=== PATIENT | male | born 1965 | race African-American/Black ===

== ENCOUNTER 2019-08-13 17:31 | Inpatient (IN) | payer OTHER ==
[~2019-08-13] VITALS: Ht 175.3 cm; Wt 87.5 kg
--- NOTE | ~2019-08-13 | EMS ---
[address] [address] EMS Patient Care Report Name: LARISA AGUIRRE Room #: PRE ER M.R.#: [id number] Admission: Attend Phys: Discharge: Date of : 61 Report #: [id number] THIS REPORT FOR: //name// Report Transmitted: 08/13/2019 16:53 EMS Care Summary [place], [place]/[facility] Incident [id number] @ 08/13/2019 16:37 Incident Location [address] [place], [place] [id number] Patient LARISA AGUIRRE Male, 54 Years 1965 Patient Address Patient History Congestive Heart Failure (CHF),Chronic Obstructive Pulmonary Disease (COPD), Patient Allergies No known allergies, Patient Medications Oxygen, Plavix, Chief Complaint shortness of breath Disposition Transported No Lights/[place] Dispatch Reason Breathing Problem Transported To [facility] Narrative ems met p42 on scene. pt found sitting upright in chair and alert. pt a&ox4 gcs 15 and presented with mild shortness of breath. pt was conversational with crew on scene. pt complained of vomiting and soa x2 hrs. pt stated he is on 8lpm o2 via nc at all times as he is now. pt agreed to be transported to [facility]. pt stated he would attempt to walk to cot in hallway. pt made it approx half way and stated he was becoming exerted. ems stated they will carry pt. 8lpm [address] [address] EMS Patient Care Report Name: LARISA AGUIRRE Room #: [facility] M.R.#: [id number] Admission: Attend Phys: Discharge: Date of : 61 Report #: [id number] continued. pt was [place] carried to ems cot. pt was transferred onto ems cot and was secured in a semi fowlers position without incident. pt was loaded into ambulance. upon auscultation only diminished sounds were noted. pt was administered a duoneb at 8lpm o2. a 12-lead ekg was obtained but was not printed due to a monitor error. per screen, ekg was nsr and appeared unremarkable. an 18ga sl iv in pts L ac was obtained. pt was transported non emergent. transport was uneventful and pt rested on ems cot. pt stated his breathing was better. after completing duoneb pt stated his breathing began to worsen. upon arrival of [facility] pt was administered 15lpm o2 via nrb. pt care was transferred to appropriate staff and ems goes back in service. Initial Vitals @16:53P: 104,SpO2: 70, @17:01P: 90,CO: 4,SpO2: 95,KS Suspected: false @16:55P: 88,R: 20,BP: 170/106,Pain: 0/10,GCS: 15,Glucose: 111,SpO2: 96,Revised Trauma: 12, @17:07P: 80,R: 20,GCS: 15,SpO2: 82, @17:17P: 88,R: 20,BP: 164/100,GCS: 15,SpO2: 95,Revised Trauma: 12, Assessments @16:46MENTAL:Person Oriented,Time Oriented,Event Oriented,Place Oriented,SKIN:No Abnormalities,HEENT:Head/Face: No Abnormalities,Eyes: No Abnormalities,Neck/Airway: No Abnormalities,LUNG SOUNDS:General: No Abnormalities,Left Upper: No Abnormalities,Right Upper: No Abnormalities,Left Lower: No Abnormalities,Right Lower: No Abnormalities,ABDOMEN:General: No Abnormalities,Left Upper: No Abnormalities,Right Upper: No Abnormalities,Left Lower: No Abnormalities,Right Lower: No Abnormalities,PELVIS//GI:No Abnormalities,EXTREMITIES:Left Arm: No Abnormalities,Right Arm: No Abnormalities,Left Leg: No Abnormalities,Right Leg: No Abnormalities,PULSE:NEURO:No Abnormalities,@17:17MENTAL:No Abnormalities,SKIN:No Abnormalities,HEENT:Head/Face: No Abnormalities,Eyes: No Abnormalities,Neck/Airway: No Abnormalities,LUNG SOUNDS:General: No Abnormalities,Left Upper: No Abnormalities,Right Upper: No Abnormalities,Left Lower: No Abnormalities,Right Lower: No Abnormalities,ABDOMEN:General: No Abnormalities,Left Upper: No Abnormalities,Right Upper: No Abnormalities,Left Lower: No Abnormalities,Right Lower: No Abnormalities,PELVIS//GI:No Abnormalities,EXTREMITIES:Left Arm: No Abnormalities,Right Arm: No Abnormalities,Left Leg: No Abnormalities,Right Leg: No Abnormalities,PULSE:NEURO:No Abnormalities, Impression Shortness of breath Procedures @16:46ALS AssessmentResponse: UnchangedSucceeded@16:47Oxygen FlowRate: 8 Device: Nasal Cannula (NC) Response: UnchangedSucceeded@16:52Oxygen FlowRate: [address] [address] EMS Patient Care Report Name: CARLALARISA Room #: PRE ER M.R.#: [id number] Admission: Attend Phys: Discharge: Date of : 61 Report #: [id number] Device: Nebulizer Response: ImprovedSucceeded@16:52Albuterol - 2.5 Milligrams (mg) - NebulizedResponse: Improved@16:55Saline Lock 10cc (18 ga) Site: Antecubital-LeftResponse: UnchangedSucceeded@16:52Atrovent - 0.5 Milligrams (mg) - NebulizedResponse: Improved@17:0112-Lead ECGResponse: UnchangedSucceeded Timeline 16:35,Call Received 16:35,Dispatch Notified 16:37,Dispatched 16:37,En Route 16:45,On Scene 16:46,At Patient 16:46,ALS Assessment,Response: UnchangedSucceeded, 16:47,Oxygen FlowRate: 8 Device: Nasal Cannula (NC) Response: UnchangedSucceeded, 16:52,Oxygen FlowRate: 8 Device: Nebulizer Response: ImprovedSucceeded, 16:52,Albuterol - 2.5 Milligrams (mg) - Nebulized,Response: Improved 16:52,Atrovent - 0.5 Milligrams (mg) - Nebulized,Response: Improved 16:53,BP: / M,PULSE: 104,RR: R,SPO2: 70 Ox,ETCO2: ,BG: ,PAIN: ,GCS: , 16:55,Saline Lock 10cc 18 ga Site: Antecubital-Left,Response: UnchangedSucceeded, 16:55,BP: 170/106 M,PULSE: 88,RR: 20 R,SPO2: 96 Ox,ETCO2: ,B,PAIN: 0,GCS: 15, 17:01,12-Lead ECG,Response: UnchangedSucceeded, 17:01,BP: / M,PULSE: 90,RR: R,SPO2: 95 Ox,ETCO2: ,BG: ,PAIN: ,GCS: , 17:05,Depart Scene 17:07,BP: / M,PULSE: 80,RR: 20 R,SPO2: 82 Ox,ETCO2: ,BG: ,PAIN: ,GCS: 15, 17:17,BP: 164/100 M,PULSE: 88,RR: 20 R,SPO2: 95 Ox,ETCO2: ,BG: ,PAIN: ,GCS: 15, 17:19,At Destination 17:44,Call Closed Disclaimer v1.1 Copyright 2019 [employer] This EMS Care Summary contains data elements from the applicable legal record (which may be displayed differently). It is designed to provide pertinent information for the following purposes: continuity of care, clinical quality, and state data reporting. The complete legal record is available to ED staff and administrators of the receiving hospital in [employer] Patient Tracker. All data is provided "as is."
--- NOTE | ~2019-08-13 | HC ---
[facility] [place] [address] CONSULTATION Name: LARISA AGUIRRE Room #: 242-P ADM IN M.R.#: [id number] Admission: 08/13/19 Attend Phys: Ambar Hills MD Discharge: Date of : 61 Report #: [id number] THIS REPORT FOR: //name// CC: [facility] physician/PCP Ambar Hills DATE OF SERVICE: 08/15/2019 REASON FOR CONSULTATION: Elevated creatinine and pulmonary edema. REASON FOR PRESENTATION: Shortness of breath. HISTORY OF PRESENT ILLNESS: This is a 54-year-old with past medical history of COPD, hypertension, chronic kidney disease. He is known to have severe pulmonary hypertension per the recent echo. He presented to the hospital with shortness of breath ever since being discharged from [facility]. The patient tells me that he was at [facility] for the same problem and they discharged him on home oxygen, 8 liters. He started to have some shortness of breath and called EMS. O2 sat on arrival of the EMS was in the 70s. The patient was brought for further evaluation. He denies any cough or hemoptysis. Most of the patient's care is at [facility]. He does not really know the details of his medical conditions, but he tells me that he has history of chronic kidney disease and is followed up by [facility]. He also tells me that he had some issues with clots in the liver in the past. Details of this is not available for me. The patient's chest x-ray on presentation was consistent with pulmonary edema. His creatinine was elevated at 3.2 mandating a Nephrology consultation. The patient was moved to the ICU because of his significant oxygen demand. He was initiated on Lasix drip and had about 3 liters of urine output ever since. He does not recall the cause of his kidney problems. He does not take any nonsteroidal anti-inflammatory medications. He is not aware of any personal or family history of cystic kidney disease, nephrolithiasis, connective tissue disorders, and glomerulonephritis. Listed among his medications as an outpatient is Lasix. PAST MEDICAL HISTORY: 1. Chronic kidney disease. 2. Hypertension. 3. Chronic obstructive pulmonary disease. 4. Oxygen dependency. 5. Cerebrovascular accident with residual left-sided weakness. 6. Clots in the liver per the patient. Details of those are not available for me. MEDICATIONS: 1. Xarelto. 2. Lasix. [address] [address] CONSULTATION Name: LARISA AGUIRRE Room #: 242-P [facility] IN M.R.#: [id number] Admission: 08/13/19 Attend Phys: Ambar Hills MD Discharge: Date of : 61 Report #: [id number] 3. Plavix. 4. Carvedilol. 5. Atorvastatin. 6. Amlodipine. REVIEW OF SYSTEMS: GENERAL: No fever or chills. CARDIOVASCULAR: Significant for shortness of breath and dyspnea on exertion. PULMONARY: Significant for shortness of breath, dyspnea on exertion, orthopnea, PND. GASTROINTESTINAL: No nausea or vomiting. GENITOURINARY: No frequency, no urgency. SKIN: No rash or ulcerations. FAMILY HISTORY: His father had heart disease. ALLERGIES: None. PHYSICAL EXAMINATION: VITAL SIGNS: Blood pressure is 148/109. He is afebrile with a temperature of 37. HEAD AND NECK: He is maintained on oxygen. CHEST: Bilateral crackles. CARDIOVASCULAR: No rub. ABDOMEN: Soft, nontender. EXTREMITIES: Lower extremities, no edema. LABORATORY VALUES: Reviewed. He is anemic with a hemoglobin of 9.2; pH of 7.4, pCO2 of 31. Chemistry from this morning, sodium 138, potassium 3.8, BUN 41, creatinine of 3.0. Chest x-ray consistent with pulmonary edema. Renal ultrasound consistent with chronic kidney disease. IMPRESSION AND PLAN: 1. Acute respiratory failure. 2. Chronic kidney disease. 3. Pulmonary edema. 4. Severe pulmonary hypertension. 5. Need to obtain the patient's medical record from [facility] to try to figure out his baseline chronic kidney disease issues and his baseline creatinine. 6. He had very significant response to IV diuresis with improvement of his chest x-ray and oxygen demand. Continue with the Lasix drip one more day. 7. Switch to intermittent dose of Lasix tomorrow, [place] [address] CONSULTATION Name: LARISA AGUIRRE Room #: 242-P [facility] IN M.R.#: [id number] Admission: 08/13/19 Attend Phys: Ambar Hills MD Discharge: Date of : 61 Report #: [id number] diuretics. 8. Blood pressure control. 9. Chronic obstructive pulmonary disease per the pulmonary team. 10. Salt restriction. 11. We will continue to follow. By: [id number] He Meeks MD /nt
[2019-08-13 17:31] VITALS: BP 125/75
[2019-08-13 17:47] LABS: BASOPHILS 0.7 % (0.0-2.0); EOSINOPHILS 0.8 % (0.0-3.0); HEMATOCRIT 32.1 % (42.0-52.0); HEMOGLOBIN 10.2 gm/dL (14.0-18.0); LYMPHOCYTES 7.3 % (24.0-44.0); MCH 22.1 pg (26.0-34.0); MCHC 31.7 g/dL (28.0-37.0); MCV 69.9 fL (80.0-100.0); MONOCYTES 10.5 % (1.0-8.0); PLATELET COUNT 449 thou/uL (150-400); POLYS 80.7 % (36.0-66.0); RBC 4.59 mil/uL (4.50-6.00); RDW 18.1 % (10.5-14.5); WBC 12.4 thou/uL (4.0-11.0)
[2019-08-13 17:58] LABS: ANION GAP 12 mmol/L (7-16); BUN 32 mg/dL (7-18); CALCIUM 8.8 mg/dL (8.5-10.1); CHLORIDE 104 mmol/L (98-107); CO2 24 mmol/L (21-32); CREATININE 2.9 mg/dL (0.7-1.3); GLUCOSE 113 mg/dL (74-106); POTASSIUM 3.3 mmol/L (3.5-5.1); SODIUM 140 mmol/L (136-145)
[2019-08-13 18:04] LABS: BE(vivo) -3.8 mmol/L (-2 to +3); HCO3 19.8 mmol/L (22.0-26.0); pH 7.423 (7.360-7.450); sO2 80.1 % (92.0-98.0)
[2019-08-13 18:09] LABS: ALBUMIN 3.3 g/dL (3.4-5.0); SGOT 11 U/L (15-37); SGPT 11 U/L (30-65); TOTAL BILIRUBIN 0.6 mg/dL (<0.1-1.0); TROPONIN-I <0.06 ng/mL (<0.06)
[2019-08-13 18:10] LABS: PO2 42.5 mmHg (80.0-100.0)
[2019-08-13 18:18] LABS: ANISOCYTOSIS 1+; POLYCHROMASIA OCCASIONAL
[2019-08-13 18:19] LABS: HYPOCHROMASIA SLIGHT; MICROCYTES 1+
[2019-08-13 20:03] LABS: BE(vivo) -4.1 mmol/L (-2 to +3); HCO3 19.6 mmol/L (22.0-26.0); PCO2 31.1 mmHg (35.0-45.0); PO2 101.2 mmHg (80.0-100.0); pH 7.417 (7.360-7.450); sO2 97.8 % (92.0-98.0)
[2019-08-13 20:15] VITALS: BP 112/76
[2019-08-13 20:48] VITALS: BP 112/76
[2019-08-13] MEDS ORDERED: XARELTO15 MG PO (22:33)
[2019-08-13] MEDS ORDERED: HYDRALAZINE 5050 MG PO (22:34)
[2019-08-13] MEDS ORDERED: LASIX 40 MG TAB40 M2 PO (22:34)
[2019-08-13] MEDS ORDERED: PLAVIX 75 MG TA75 M1 PO (22:36)
[2019-08-13] MEDS ORDERED: COREG6.25 MG PO (22:36)
[2019-08-13] MEDS ORDERED: DULERA 100 MCG/13 GM INH (22:36)
[2019-08-13] MEDS ORDERED: LIPITOR40 MG PO (22:37)
[2019-08-13] MEDS ORDERED: NORVASC10 MG PO (22:37)
[2019-08-13] MEDS ORDERED: VENTOLIN HFA 1818 GM INH (22:39)
[2019-08-13] MEDS ORDERED: SPIRIVA18 MCG INH (22:40)
[2019-08-13 23:47] VITALS: BP 99/68
[2019-08-14] VITALS (14 sets, daily range): BP systolic 111–159; BP diastolic 65–101
--- NOTE | 2019-08-14 05:11 | NUR ---
PT WAS AN ER ADMIT. PT IS STABLE UPON ARRIVAL TO THE FLOOR. PT IS ON A NON-REBREATHER MASK. PT IS ALERT AND ORIENTED. NO SIGN OF DISTRESS NOTED. NO FAMILY AT BEDSIDE. ADMISSION ASSESSMENT COMPLETED AND CHARTED. SCHEDULED MEDS ADMINISTERED TO PT. NO SIGN OF DISTRESS NOTED IN PT. PT IS STABLE. FALL PRECAUTION IN PLACE. CONTINUE TO MONITOR PATIENT.
[2019-08-14 07:42] LABS: CALCIUM 8.7 mg/dL (8.5-10.1); CREATININE 3.2 mg/dL (0.7-1.3); MAGNESIUM 2.2 mg/dL (1.8-2.4)
--- NOTE | 2019-08-14 08:03 | EKG ---
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 : 1965 Requested By: Wayne Gordon Order Number: [id number] MD: Robin Reyes Measurements Intervals [place] Rate: 86 P: -21 NV: 143 QRS: -3 QRSD: 99 T: 65 QT: 505 QTc: 604 Interpretive Statements Sinus rhythm Consider left atrial enlargement Abnormal R-wave progression, early transition Nonspecific repol abnormality, lateral leads No previous ECG available for comparison Electronically Signed On 08-14-2019 8:03:23 CDT by Robin Reyes [email or web address] <ELECTRONICALLY SIGNED> By: Robin Reyes MD 08/14/19 08 36 36 Robin Reyes MD /[place]
--- NOTE | 2019-08-14 10:24 | 2DMMODE ---
[facility] [address] [place] [address] 2 D/M-MODE ECHOCARDIOGRAM Name: LARISA AGUIRRE Room #: 213-P ADM IN M.R.#: [id number] Admission: 08/13/19 Attend Phys: Ambar Hills MD Discharge: Date of : 61 Report #: [id number] THIS REPORT FOR: //name// APPROVED REPORT Study performed: 08/14/2019 09:07:16 EXAM: Comprehensive 2D, Doppler, and color-flow Echocardiogram Patient Location: Bedside Room #: 213 Status: routine BSA: 2.07 HR: 86 bpm BP: 127/87 mmHg Rhythm: NSR Other Information Study Quality: Adequate Technically limited study due to constant coughing. Indications Short of breath. Pulmonary edema. Hx: CHF, COPD, HTN. 2D Dimensions RVDd: 52.09 mm IVSd: 12.00 (7-11mm) LVOT Diam: 22.12 (18-24mm) LVDd: 48.00 mm PWd: 11.00 (7-11mm) Ascending Ao: 38.86 (22-36mm) LVDs: 26.52 (25-40mm) Aortic Root: 40.11 mm Volumes Left Atrial Volume (Systole) Single Plane 4CH: 50.43 mL Single Plane 2CH: 55.27 mL LA ESV Index: 28.00 mL/m2 Aortic Valve AoV Peak Andrea.: 2.39 m/s AO Peak Gr.: 22.94 mmHg LVOT Max P.92 mmHg AO Mean Gr.: 11.83 mmHg AO V2 Mean: 1.64 m/s LVOT Max V: 1.32 m/s AO V2 VTI: 39.08 cm CHARLIE Vmax: 2.11 cm2 [facility] [address] [place] [address] 2 D/M-MODE ECHOCARDIOGRAM Name: LARISA AGUIRRE Room #: 213-P ADM IN M.R.#: [id number] Admission: 08/13/19 Attend Phys: Ambar Hills MD Discharge: Date of : 61 Report #: [id number] Mitral Valve E/A Ratio: 0.7 MV Decel. Time: 337.18 ms MV E Max Andrea.: 0.79 m/s MV A Andrea.: 1.14 m/s MV PHT: 97.78 ms IVRT: 72.66 ms Pulmonary Valve PV Peak Andrea.: 1.05 m/s PV Peak Gr.: 4.39 mmHg Tricuspid Valve TR Peak Andrea.: 4.29 m/s RAP Estimate: 5.00 mmHg TR Peak Gr.: 74.00 mmHg PA Pressure: 79.00 mmHg Left Ventricle The left ventricle is normal size. There is normal LV segmental wall motion. Flattened septum consistent with right ventricular pressure overload. Mild concentric left ventricular hypertrophy. Left ventricular systolic function is hyperdynamic. LVEF is >70%. Mild diastolic dysfunction is present (impaired relaxation pattern). Right Ventricle Right ventricle is dilated. The right ventricular systolic function appears normal. Atria The left atrium size is normal. Right atrium is dilated. Aortic Valve Aortic valve is moderately calcified but has adequate excursion. No aortic regurgitation is present. Mitral Valve The mitral valve is normal in structure. There is no mitral valve regurgitation noted. No evidence of mitral valve stenosis. Tricuspid Valve The tricuspid valve is normal in structure. Mild tricuspid regurgitation. Severe pulmonary hypertension with an estimated PAP of 80mmHg. Pulmonic Valve The pulmonary valve is normal in structure. Trace pulmonic [facility] [address] [place] [address] 2 D/M-MODE ECHOCARDIOGRAM Name: LARISA AGUIRRE Room #: 213-P ADM IN M.R.#: [id number] Admission: 08/13/19 Attend Phys: Ambar Hills MD Discharge: Date of : 61 Report #: [id number] regurgitation. Great Vessels Aortic root is mildly dilated. The ascending aorta is mildly dilated. IVC is normal in size and collapses >50% with inspiration. Pericardium There is no pericardial effusion. <Conclusion> The left ventricle is normal size. Mild concentric left ventricular hypertrophy. Left ventricular systolic function is hyperdynamic. Mild diastolic dysfunction is present (impaired relaxation pattern). Right ventricle is dilated. The left atrium size is normal. Aortic valve is moderately calcified but has adequate excursion. There is no mitral valve regurgitation noted. Mild tricuspid regurgitation. Severe pulmonary hypertension with an estimated PAP of 80mmHg. <ELECTRONICALLY SIGNED> By: Maxim Bellamy MD 08/14/19 [phone] 1024 Maxim Bellamy MD /INF
[2019-08-14 11:40] LABS: HEMATOCRIT 29.9 % (42.0-52.0); HEMOGLOBIN 9.4 gm/dL (14.0-18.0); MCH 22.3 pg (26.0-34.0); MCHC 31.5 g/dL (28.0-37.0); MCV 70.9 fL (80.0-100.0); RBC 4.22 mil/uL (4.50-6.00); RDW 18.7 % (10.5-14.5); WBC 6.9 thou/uL (4.0-11.0)
[2019-08-14 12:04] LABS: APTT 44.2 Seconds (24.5-32.8); INR 1.3; PROTIME 13.8 Seconds (9.3-11.4)
[2019-08-14 12:11] LABS: URINE BILIRUBIN NEGATIVE (Negative); URINE BLOOD NEGATIVE (Negative); URINE CLARITY CLEAR; URINE COLOR YELLOW; URINE GLUCOSE-RANDOM* NEGATIVE (Negative); URINE KETONES NEGATIVE (Negative); URINE LEUKOCYTES NEGATIVE (Negative); URINE NITRITE NEGATIVE (Negative); URINE PROTEIN (DIPSTICK) TRACE (Negative); URINE UROBILINOGEN 0.2 E.U./dl (0.2-1.0)
[2019-08-14 12:18] LABS: URINE CREATININE-RANDOM* 107.2 mg/dL; URINE PROTEIN-RANDOM* 52.8 mg/dL (<11.9)
[2019-08-14 12:21] LABS: AMP/METHAMP Negative (Negative); BARBITURATES Negative (Negative); BENZODIAZEPINES Negative (Negative); COCAINE Negative (Negative); METHADONE Negative (Negative); OPIATES Negative (Negative); PCP Negative (Negative)
--- NOTE | 2019-08-14 14:03 | NUR ---
Case opened to follow for dc planning needs. Pt is currently in ICU on continous bipap. Legislative Director visited with the pt at bedside and cm role introduced. Pt's emergency contact is his sign other Peri. They live together and he relies on her for transport to appts. He is on SS disability as of January this year due to his chf/copd. He has home o2, a rwalker and nebulizer. He uses 5liters at rest and 8lpm with activity. He does not recall the o2 provider. His pcp is at [facility] and he has gone there for several years. He is on [place] medicaid with a $180.00 spend down. He has three steps to enter the home through the garage,then everything is on the main level. He is indep with gait and adl's. Peri helps with IADLS. No prior hh. Will ask for therapy evals. DC needs are uncertain at this time. Will follow along.
--- NOTE | 2019-08-14 18:00 | NUR ---
Shift summary: Oriented x 4. Left sided weakness and some word finding deficits noted. VSS. Afebrile. SR per monitor. Heparin gtt per Cardiology weight based protocol. Lasix gtt at 5mg/hr. Pt denies chest pain. No edema. O2 titrated down to 50L, 77% per optiflow heated high flow cannula. Lungs clear with crackles bilateral bases. Less dyspneic. SaO2 100%. BS active. NPO except meds. No stool. Lugo placed upon arrival to ICU. Diuresing. 1250ml clear yellow urine this shift. Plan of care reviewed and updated as able. Pt breathing much easier and able to carry on conversation without SOA.
[2019-08-15] VITALS (19 sets, daily range): BP systolic 110–171; BP diastolic 75–112
[2019-08-15 01:10] LABS: GLYCOHEMOGLOBIN (HGB A1C) 5.9 % (4.8-5.6)
[2019-08-15 02:49] LABS: HEMATOCRIT 28.8 % (42.0-52.0); HEMOGLOBIN 9.2 gm/dL (14.0-18.0); MCH 22.4 pg (26.0-34.0); MCHC 31.8 g/dL (28.0-37.0); MCV 70.4 fL (80.0-100.0); RBC 4.1 mil/uL (4.50-6.00); RDW 18.3 % (10.5-14.5); WBC 10.3 thou/uL (4.0-11.0)
[2019-08-15 03:00] LABS: ALBUMIN 2.8 g/dL (3.4-5.0); CALCIUM 8.5 mg/dL (8.5-10.1); PHOSPHORUS 5.6 mg/dL (2.5-4.9); POTASSIUM 3.8 mmol/L (3.5-5.1)
--- NOTE | 2019-08-15 06:22 | NUR ---
PT ON LASIX AND HEPARIN GTTS. APTT CRITICALLY HIGH WHEN CHECKED AT SHIFT CHANGE. RESULTS REPORTED TO DR. SANCHEZ. HEPARIN HELD FOR ONE HOUR AND RESTARTED AT 12 U/KG/HR, PER PROTOCOL. APTT CHECKED AGAIN EARLY THIS AM AND WAS IN THERAPEUTIC RANGE, NO CHANGE IN RATE. PT ON OPTIFLOW. NO DYSPNEA OVERNIGHT. WILL CONTINUE TO MONITOR.
--- NOTE | 2019-08-15 07:15 | NUR ---
PATIENT TRANSFERRED TO ICU DUE TO A DECLINE IN MEDICAL STATUS. WILL AWAIT NEW OT ORDERS ONCE PATIENT IS MEDICALLY APPROPRIATE.
--- NOTE | 2019-08-15 08:29 | NUR ---
Pt TRANSFERRED TO ICU YESTERDAY D/T RESPIRATORY DISTRESS, DYSPNEA, AND HYPOXIA. WILL NEED NEW PT ORDERS TO RESUME PT SERVICES ONCE Pt IS MEDICALLY APPROPRIATE.
[2019-08-15 11:19] LABS: % SATURATION 9 % (20-39); IRON 20 ug/dL (65-175); TIBC 214 ug/dL (250-450)
--- NOTE | 2019-08-15 12:42 | 2DMMODE ---
[facility] [address] [place] [address] 2 D/M-MODE ECHOCARDIOGRAM Name: LARISA AGUIRRE Room #: 242-P ADM IN M.R.#: [id number] Admission: 08/13/19 Attend Phys: Ambar Hills MD Discharge: Date of : 61 Report #: [id number] THIS REPORT FOR: //name// APPROVED REPORT Study performed: 08/15/2019 11:26:01 EXAM: Limited 2D Echocardiogram Patient Location: ICU Room #: 242 Status: routine BSA: 2.03 HR: 73 bpm BP: 143/95 mmHg Rhythm: NSR Other Information Study Quality: Good Indications Abbreviated echo to rule out sunt. Complete echo done yesterday, 08/14/19. Echo Enhancing Agent Indication: Rule out Shunt Agent(s) / Amount(s) Used: Agitated Saline 12 cc Left Ventricle The left ventricle is normal size. There is normal LV segmental wall motion. Mild concentric left ventricular hypertrophy. Left ventricular systolic function is normal. Right Ventricle Right ventricle is dilated. Atria The left atrium size is normal. Injection of bubbles suggests an interatrial shunt(observed towards the end of the injection). Right atrium is dilated. <Conclusion> The left ventricle is normal size. Mild concentric left ventricular hypertrophy. Left ventricular systolic function is normal. Right ventricle is dilated. Right atrium is dilated. [facility] [address] [place] [address] 2 D/M-MODE ECHOCARDIOGRAM Name: LARISA AGUIRRE Room #: 242-P ADM IN M.R.#: [id number] Admission: 08/13/19 Attend Phys: Ambar Hills MD Discharge: Date of : 61 Report #: [id number] Injection of bubbles suggests an interatrial shunt(observed towards the end of the injection). <ELECTRONICALLY SIGNED> By: Maxim Bellamy MD 08/15/19 1242 124 41 Maxim Bellamy MD /INF
--- NOTE | 2019-08-15 13:13 | NUR ---
FOUR ATTEMPTS THIS SHIFT TO FAX MEDICAL RECORD REQUEST/CONSENT TO [facility]. NO RESPONSE FROM TWO DIFFERENT MEDICAL RECORD FAX NUMBERS. WILL ATTEMPT AGAIN
[2019-08-15 14:09] LABS: ANA INTERPRETATION Negative (Negative)
--- NOTE | 2019-08-15 14:43 | NUR ---
Consult rec'd to arrange for tranfer to inpt acute care at [facility] for ongoing evaluation and treatment options for severe pulmonary htn crisis. Pt is agreeable if they can accept. Contact made with the transfer nurse and physican info provided. Dc paraplanner faxed face sheet and clinical. Rad notified to upload to the cloud. Chart copy is in progress. Transfer form and [facility] from on the chart should the pt be accepted. Pt and care team updated. The pt reports he has been to [facility] the past but can not recall which physician he saw. Will follow. [facility] RN [phone], fax [phone]
--- NOTE | 2019-08-15 20:30 | NUR ---
ASSUMED CARE OF PT 1900. PT PREPARED TO TX TO [facility]. REPORT GIVEN TO JAYCE Pitmtan AT AT 1930. [facility] CONTACTED FOR TRANSPORT. PT TX'D TO [facility] AT 2019.
[2019-08-16 21:05] LABS: INFLUENZA VIRUS B AB QUANT Negative (Neg:<1:8)
== END 2019-08-15 20:20 | disposition short-term general hospital (02) | DRG 193 ==
LOC: ER 17:31 → 2N 19:47 → EROBS 19:47 → ICU 19:47 → 2N 20:22 → ICU 08-14 11:34
PROVIDERS: Hospitalist; Internal Medicine Pulmonary Disease; Nurse Practitioner; Nurse Practitioner Acute Care; Physician Assistant; ADMIT Internal Medicine
DX: J18.9 Pneumonia, unspecified organism (principal); J96.21 Acute and chronic respiratory failure with hypoxia; I82.0 Budd-Chiari syndrome; I13.0 Hypertensive heart and chronic kidney disease with heart failure and stage 1 through stage 4 chronic kidney disease, or unspecified chronic kidney disease; J44.0 Chronic obstructive pulmonary disease with (acute) lower respiratory infection; I69.354 Hemiplegia and hemiparesis following cerebral infarction affecting left non-dominant side; N17.9 Acute kidney failure, unspecified; J44.1 Chronic obstructive pulmonary disease with (acute) exacerbation; E87.2 Acidosis; I50.42 Chronic combined systolic (congestive) and diastolic (congestive) heart failure; I07.1 Rheumatic tricuspid insufficiency; E78.5 Hyperlipidemia, unspecified; D50.9 Iron deficiency anemia, unspecified; N18.9 Chronic kidney disease, unspecified; E87.6 Hypokalemia; I27.20 Pulmonary hypertension, unspecified; Z87.891 Personal history of nicotine dependence; Z99.81 Dependence on supplemental oxygen; Z79.899 Other long term (current) drug therapy; Z83.3 Family history of diabetes mellitus; Z80.8 Family history of malignant neoplasm of other organs or systems; Z82.49 Family history of ischemic heart disease and other diseases of the circulatory system
CPT/HCPCS: 10078; 10081

== ENCOUNTER 2019-10-11 19:04 | Emergency (ER) | payer OTHER ==
[~2019-10-11] VITALS: Ht 175.3 cm; Wt 72.6 kg
[~2019-10-11 19:04] MED LIST: COREG6.25 MG PO; DULERA 100 MCG/13 GM INH; HYDRALAZINE 5050 MG PO; LASIX 40 MG TAB40 M2 PO; LIPITOR40 MG PO; NORVASC10 MG PO; PLAVIX 75 MG TA75 M1 PO; SPIRIVA18 MCG INH; VENTOLIN HFA 1818 GM INH; XARELTO15 MG PO
[2019-10-11 19:21] LABS: ABSOLUTE NEUTROPHILS 5.2 thou/uL (1.4-8.2); BASOPHILS 1.4 % (0.0-2.0); EOSINOPHILS 4.5 % (0.0-3.0); HEMATOCRIT 33.4 % (42.0-52.0); HEMOGLOBIN 10.5 gm/dL (14.0-18.0); LYMPHOCYTES 23.1 % (24.0-44.0); MCH 21.6 pg (26.0-34.0); MCHC 31.5 g/dL (28.0-37.0); MCV 68.5 fL (80.0-100.0); MONOCYTES 7.2 % (1.0-8.0); PLATELET COUNT 564 thou/uL (150-400); POLYS 63.8 % (36.0-66.0); RBC 4.89 mil/uL (4.50-6.00); RDW 19.7 % (10.5-14.5); WBC 8.2 thou/uL (4.0-11.0)
[2019-10-11 19:26] LABS: BE(vivo) -3.9 mmol/L (-2 to +3); HCO3 19.7 mmol/L (22.0-26.0); PCO2 31.2 mmHg (35.0-45.0); PO2 157.6 mmHg (80.0-100.0); pH 7.419 (7.360-7.450); sO2 99.1 % (92.0-98.0)
[2019-10-11 19:34] LABS: ANION GAP 13 mmol/L (7-16); BUN 30 mg/dL (7-18); CALCIUM 8.7 mg/dL (8.5-10.1); CHLORIDE 103 mmol/L (98-107); CO2 22 mmol/L (21-32); GLUCOSE 105 mg/dL (74-106); POTASSIUM 3.7 mmol/L (3.5-5.1); SODIUM 138 mmol/L (136-145)
[2019-10-11 19:36] LABS: APTT 44.1 Seconds (24.5-32.8); INR 1.4; PROTIME 14.3 Seconds (9.3-11.4)
[2019-10-11 19:44] LABS: ALBUMIN 3.4 g/dL (3.4-5.0); MAGNESIUM 2.2 mg/dL (1.8-2.4); SGOT 12 U/L (15-37); SGPT 11 U/L (30-65); TOTAL BILIRUBIN 0.4 mg/dL (<0.1-1.0); TOTAL PROTEIN 8.1 g/dL (6.4-8.2); TROPONIN-I <0.06 ng/mL (<0.06)
[2019-10-11] MEDS ORDERED: CARVEDILOL12.5 MG PO (19:55)
[2019-10-11 20:09] LABS: ANISOCYTOSIS 2+; HYPOCHROMASIA 2+; MICROCYTES 2+; POLYCHROMASIA 1+
[2019-10-11 21:09] LABS: URINE BILIRUBIN NEGATIVE (Negative); URINE BLOOD NEGATIVE (Negative); URINE CLARITY CLEAR; URINE COLOR YELLOW; URINE GLUCOSE-RANDOM* NEGATIVE (Negative); URINE KETONES TRACE (Negative); URINE LEUKOCYTES-REFLEX NEGATIVE (Negative); URINE NITRITE-REFLEX NEGATIVE (Negative); URINE PROTEIN (DIPSTICK) TRACE (Negative); URINE UROBILINOGEN 0.2 E.U./dl (0.2-1.0)
[2019-10-12 00:01] VITALS: BP 131/95
--- NOTE | 2019-10-14 07:40 | EKG ---
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: [place] : 1965 Requested By: Pro Gilbert Order Number: [id number] MD: Steve Garcia Measurements Intervals [place] Rate: 75 P: 20 NM: 144 QRS: -3 QRSD: 106 T: -78 QT: 413 QTc: 462 Interpretive Statements Sinus rhythm Borderline repolarization abnormality Compared to ECG 08/13/2019 17:37:57 No significant changes Electronically Signed On 10-14-2019 7:40:05 VETERINARY MEDICINE TEACHER by Steve Garcia [email or web address] <ELECTRONICALLY SIGNED> By: Steve Garcia MD, [facility] 10/14/19 0740 [id number] Steve Garcia MD, FACC /EPI
== END 2019-10-12 00:02 | disposition short-term general hospital (02) ==
LOC: ER 19:04
PROVIDERS: Emergency Medicine
DX: J96.91 Respiratory failure, unspecified with hypoxia (principal); J44.1 Chronic obstructive pulmonary disease with (acute) exacerbation; I13.2 Hypertensive heart and chronic kidney disease with heart failure and with stage 5 chronic kidney disease, or end stage renal disease; I50.9 Heart failure, unspecified; N18.9 Chronic kidney disease, unspecified; D50.9 Iron deficiency anemia, unspecified